=== PATIENT | male | born 1955 | race Caucasian/White ===

== ENCOUNTER 2019-08-26 08:51 | Outpatient (CLI) | payer BC, SELFPAY ==
--- NOTE | ~2019-08-26 | XR_ITS ---
EXAMINATION: XR chest 2V DATE: 08/26/2019 09:27 INDICATION: Shortness of breath. TECHNIQUE: Frontal and lateral views of the chest were obtained. COMPARISON: Chest single view 03/01/2017, chest CT 02/28/2017 FINDINGS: There is an interstitial pattern in the lungs, consistent with mild pulmonary edema. There is a small right pleural effusion. No pneumothorax. The heart size is normal. IMPRESSION: 1. Mild pulmonary edema. 2. Small right pleural effusion. Reviewed, dictated and finalized at location A.
== END 2019-08-26 08:52 | disposition home or self-care (01) ==
PROVIDERS: PCP Family Medicine; Visit Provider Nurse Practitioner Family
DX: J90 Pleural effusion, not elsewhere classified (principal); R91.8 Other nonspecific abnormal finding of lung field
CPT/HCPCS: 71046

== ENCOUNTER 2019-08-27 09:34 | Outpatient (CLI) | payer BC, SELFPAY ==
[2019-08-27 10:24] LABS: Hematocrit 40.8 % (42.0-52.0); Hemoglobin 13.5 g/dL (14.0-18.0); Mean Corpuscular HGB Conc 33.1 g/dl (32-36); Mean Corpuscular Hemoglobin 31.3 pg (26-34); Mean Corpuscular Volume 94.4 fl (80-100); Mean Platelet Volume 10.8 fl (7.4-10.4); Platelet Count Result 213 k/mm3 (150-375); Red Blood Count 4.32 M/mm3 (4.6-6.20); Red Cell Distribution Width 13.2 % (11.5-14.5); White Blood Count 4.7 K/mm3 (4.5-10.0)
[2019-08-27 10:31] LABS: D Dimer 0.31 ug/mL (<0.48)
[2019-08-27 10:33] LABS: Blood Urea Nitrogen 14 mg/dL (9-20); Calcium 9.4 mg/dL (8.4-10.2); Carbon Dioxide 24 mmol/L (22-30); Chloride 101 mmol/L (98-107); Estimated Glomerular Filt Rate > 60; Glucose 403 mg/dL (75-110); Potassium 4.5 mmol/L (3.4-5.0); Sodium 133 mmol/L (137-145)
[2019-08-27 10:41] LABS: NT Pro B Type Natriuretic Pept 595 PG/ML (5-100)
== END 2019-08-27 09:35 | disposition home or self-care (01) ==
PROVIDERS: PCP Family Medicine; Visit Provider Nurse Practitioner Family
DX: R06.02 Shortness of breath (principal); R50.9 Fever, unspecified
CPT/HCPCS: 36415; 80048; 83880; 85027; 85380

== ENCOUNTER 2020-05-09 16:28 | Outpatient (CLI) | payer BC, MEDICARE, OTHER, SELFPAY ==
--- NOTE | ~2020-05-09 | XR_ITS ---
EXAMINATION: XR chest 2V DATE: 05/09/2020 16:50 INDICATION: Cough and shortness of breath TECHNIQUE: PA and lateral views of the chest are obtained. COMPARISON: 08/26/2019 FINDINGS: There are minimal airspace opacities of the lung bases. A mild diffuse interstitial pattern is present. There are small pleural effusions. The cardiomediastinal silhouette is normal. There are bridging osteophytes at multiple levels in the spine, consistent with diffuse idiopathic skeletal hy perostosis (DISH). IMPRESSION: 1. Likely mild pulmonary edema. 2. Small pleural effusions. Reviewed, dictated and finalized at location A. MACY INTERN
== END 2020-05-09 16:29 | disposition home or self-care (01) ==
LOC: ANHIMG 16:34
PROVIDERS: PCP Family Medicine; Visit Provider Nurse Practitioner Family
DX: R05 Cough (principal); R06.02 Shortness of breath; R60.0 Localized edema; M79.89 Other specified soft tissue disorders; J90 Pleural effusion, not elsewhere classified
CPT/HCPCS: 71046

== ENCOUNTER 2020-05-10 10:46 | Outpatient (CLI) | payer BC, MEDICARE, OTHER, SELFPAY ==
[2020-05-10 11:37] LABS: Anion Gap 9 mmol/L (8-16); Blood Urea Nitrogen 19 mg/dL (9-20); Calcium 9.6 mg/dL (8.4-10.2); Carbon Dioxide 28 mmol/L (22-30); Chloride 100 mmol/L (98-107); Estimated Glomerular Filt Rate > 60; Glucose 328 mg/dL (75-110); Potassium 4.4 mmol/L (3.4-5.0); Sodium 137 mmol/L (137-145)
[2020-05-10 11:46] LABS: NT Pro B Type Natriuretic Pept 280 PG/ML (5-100)
== END 2020-05-10 10:47 | disposition home or self-care (01) ==
PROVIDERS: PCP Family Medicine; Visit Provider Nurse Practitioner Family
DX: R60.0 Localized edema (principal); R06.02 Shortness of breath; R05 Cough
CPT/HCPCS: 36415; 80048; 83880

== ENCOUNTER 2020-05-13 07:56 | Outpatient (CLI) | payer BC, MEDICARE, OTHER, SELFPAY ==
[2020-05-13 08:35] LABS: Anion Gap 7 mmol/L (8-16); Blood Urea Nitrogen 21 mg/dL (9-20); Calcium 8.9 mg/dL (8.4-10.2); Carbon Dioxide 30 mmol/L (22-30); Chloride 99 mmol/L (98-107); Estimated Glomerular Filt Rate > 60; Glucose 335 mg/dL (75-110); Potassium 5.6 mmol/L (3.4-5.0); Sodium 136 mmol/L (137-145)
== END 2020-05-13 07:57 | disposition home or self-care (01) ==
PROVIDERS: PCP Family Medicine; Visit Provider Nurse Practitioner Family
DX: R60.0 Localized edema (principal)
CPT/HCPCS: 36415; 80048

== ENCOUNTER 2020-05-16 07:52 | Outpatient (CLI) | payer BC, MEDICARE, OTHER, SELFPAY ==
[2020-05-16 08:30] LABS: Anion Gap 7 mmol/L (8-16); Blood Urea Nitrogen 21 mg/dL (9-20); Calcium 9.2 mg/dL (8.4-10.2); Carbon Dioxide 27 mmol/L (22-30); Chloride 102 mmol/L (98-107); Estimated Glomerular Filt Rate > 60; Glucose 238 mg/dL (75-110); Potassium 4.4 mmol/L (3.4-5.0); Sodium 136 mmol/L (137-145)
== END 2020-05-16 07:53 | disposition home or self-care (01) ==
PROVIDERS: PCP Family Medicine; Visit Provider Nurse Practitioner Family
DX: E87.5 Hyperkalemia (principal)
CPT/HCPCS: 36415; 80048

== ENCOUNTER 2020-05-26 08:23 | Outpatient (CLI) | payer BC, MEDICARE, OTHER, SELFPAY ==
[2020-05-26 09:09] LABS: Magnesium 1.7 mg/dL (1.6-2.3)
== END 2020-05-26 08:24 | disposition home or self-care (01) ==
PROVIDERS: PCP Family Medicine; Visit Provider Nurse Practitioner Family
DX: R25.2 Cramp and spasm (principal)
CPT/HCPCS: 36415; 82607; 83735

== ENCOUNTER 2020-08-02 06:51 | Inpatient (IN) | payer BC, MEDICARE, OTHER, SELFPAY ==
[2020-08-02] VITALS (9 sets, daily range): BP systolic 138–180; BP diastolic 62–79; PULSE 64–105; RESP 16–26; TEMP 36.5–36.8; O2SAT 96–99; BMI 44.1
--- NOTE | ~2020-08-02 | MR_ITS ---
EXAMINATION: MR lower leg RT wo/w con DATE: 08/02/2020 16:36 INDICATION: Right lower leg infection TECHNIQUE: Magnetic resonance imaging (MRI) of the right lower leg was performed without and with 20 mL Multihance intravenous contrast. A marker was placed over the region of concern. Sequences includ ed axial T1-weighted FSE, axial T2-weighted FS FSE, axial fluid sensitive FSE STIR ,coronal T1-weight ed FSE, coronal fluid sensitive FSE STIR, sagittal T1-weighted FSE and sagittal fluid sensitive FSE S TIR. Postcontrast axial and coronal T1-weighted FS FSE were also obtained. COMPARISON: Radiographs dated 02/23/2010 FINDINGS: Old healed fracture deformity at the mid right tibial diaphysis. Normal marrow signal throughout with no fracture, osteomyelitis or other pathologic marrow replacing process. There is prominent diffuse subcutaneous edema throughout the right calf. No significant edema in the deeper muscular compartment s. No abscess or other loculated fluid collections. There is contrast enhancement of multiple vessels in the visualized calf. No evident venous thrombosis. No abnormal masses or abnormally enhancing les ions identified. IMPRESSION: 1. Prominent nonspecific subcutaneous edema throughout the right calf. No abscess, myositis or osteom yelitis. 2. Old healed mid fibular diaphyseal fracture. Reviewed, dictated and finalized at location A. IMPRESSION: 1. Prominent nonspecific subcutaneous edema throughout the right calf. No absce ss, myositis or osteomyelitis. 2. Old healed mid fibular diaphyseal fracture.
--- NOTE | ~2020-08-02 | XR_ITS ---
EXAMINATION: XR chest 1V portable INDICATION: Chills TECHNIQUE: Portable AP chest at 0826 hours COMPARISON: 05/09/2020 FINDINGS: The lungs are free of acute opacities. There is no pleural effusion or pneumothorax. The ca rdiomediastinal silhouette is normal. The visualized bones and soft tissues are unremarkable. IMPRESSION: 1. No acute cardiopulmonary abnormality. Reviewed, dictated and finalized at location A.
--- NOTE | ~2020-08-02 | US_ITS ---
EXAMINATION: US venous doppler LE RT DATE: 08/02/2020 09:54 INDICATION: Right lower limb pain. TECHNIQUE: Grayscale ultrasound images without and with compression and Doppler ultrasound images of the right lower extremity veins were obtained. COMPARISON: None. FINDINGS: The visualized portions of right common femoral vein, profunda (deep) femoral vein, femoral vein, pop liteal vein, peroneal veins, posterior tibial veins, and greater saphenous vein outflow are patent. IMPRESSION: 1. No deep venous thrombosis. Reviewed, dictated and finalized at location B.
--- NOTE | 2020-08-02 08:06 | ED.GENADULT ---
HPI - General Adult General Chief complaint: Wound/Laceration Stated complaint: chills Time Seen by Provider: 08/02/20 07:06 Source: patient History of Present Illness HPI narrative: Patient is a 64 y/o male complaining of severe, shaking chill starting 2 hours ago. There is no known alleviating or exacerbating factor. However, his symptoms have improved spontaneously. He has no fever, cough or SOB. He denies any pain. Related Data Home Medications Medication Instructions Recorded Confirmed aspirin [Enteric Coated Aspirin] 08/02/20 atorvastatin 08/02/20 clonidine HCl 08/02/20 dapagliflozin [Farxiga] mg 08/02/20 dofetilide mcg 08/02/20 exenatide microspheres [Bydureon mg SUBCUT 08/02/20 BCise] hydralazine 08/02/20 metformin 2,000 mg PO QPM 08/02/20 nifedipine PO 08/02/20 omega-3 acid ethyl esters PO 08/02/20 tamsulosin mg PO 08/02/20 trazodone 08/02/20 zolpidem 08/02/20 Allergies Allergy/AdvReac Type Severity Reaction Status Date / Time cyclobenzaprine Allergy Unknown Unknown Verified 07/04/20 09:06 Review of Systems Constitutional: Constitutional: Reports chills, Denies fever(s), Denies headache(s) and Denies weakness Eyes: Eyes: Denies blurry vision ENT: Denies headache(s) and Denies neck pain Cardiovascular: Cardiovascular: Denies chest pain and Denies dyspnea Respiratory: Respiratory: Denies cough and Denies dyspnea Gastrointestinal: Gastrointestinal: Denies abdominal pain, Denies diarrhea, Denies nausea and Denies vomiting Genitourinary: Genitourinary: Denies hematuria and Denies dysuria Musculoskeletal: Musculoskeletal: Denies back pain, Denies neck pain and Reports other (right lower leg pain) Neurologic: Denies headache(s) and Denies weakness [facility] Past Medical History Medical History BMI 40.0-44.9, adult BMI 45.0-49.9, adult BPH associated with nocturia Essential (primary) hypertension Mixed hyperlipidemia Morbid obesity Other emphysema Testicular hypofunction Type 2 diabetes mellitus without complications Vasculogenic erectile dysfunction Vitamin D deficiency Family History Family History Mother Hypertension Cancer Grandparent Carcinoma of colon Diabetes mellitus Father Family history of diabetes mellitus in first degree relative Acute myocardial infarction Heart disease Sibling Heart disease Acute myocardial infarction Social History Social History Tobacco type: cigarettes Smoking end date: 09/07/78 Alcohol intake: never Substance use: never Substance use type: does not use 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[employer] Gender identity (if verbalized by the patient): Male Exam Const: General: no acute distress and well developed Orientation/consciousness: oriented to person, oriented to place, oriented to time and patient oriented x3 HENMT: Head: normocephalic Ears: external ears normal General nose exam: Normal external nose present Eyes: General: appearance normal, both eyes and all related structures Conjunctivae: conjunctivae normal Neck: Neck: normal visual inspection and full ROM Chest: Chest palpation & inspection: normal inspection of the chest and no tenderness Resp: Effort & Inspection: normal respiratory effort Auscultation: clear to auscultation bilaterally Cardio: Rate: regular rate Rhythm: regular rhythm GI: GI Palp: No abdominal tenderness and Yes Soft to palpation Skin: General skin exam: normal color, turgor normal and erythema (right lower leg) Neuro: General: oriented to person, oriented to place, oriented to time and patient oriented x3 Cognition (Neuro): normal cognition Extrem: General: normal to inspection, full ROM and no pedal edema Psych: Appearance: grossly normal Mental Status: mental
[2020-08-02 08:25] LABS: Basophils Percent Auto 0.3 % (0.2-1.2); Eosinophils Absolute Auto 0.1 K/mm3 (0-0.3); Eosinophils Percent Auto 0.9 % (0-4.4); Hematocrit 41.3 % (42.0-52.0); Hemoglobin 13.9 g/dL (14.0-18.0); Immature Granulocyte Absolute 0.03 K/mm3 (0.00-0.031); Immature Granulocyte Percent A 0.5 % (0-0.5); Lymphocytes Absolute Auto 0.39 K/mm3 (0.9-3.2); Mean Corpuscular HGB Conc 33.7 g/dl (32-36); Mean Corpuscular Volume 94.9 fl (80-100); Mean Platelet Volume 10.3 fl (7.4-10.4); Monocytes Absolute Auto 0.1 K/mm3 (0.1-0.6); Monocytes Percent Auto 2.1 % (2.6-8.5); Neutrophils Absolute Auto 5.9 K/mm3 (1.3-6.7); Neutrophils Percent Auto 90.2 % (45.5-73.1); Platelet Count Result 147 k/mm3 (150-375); Red Blood Count 4.35 M/mm3 (4.6-6.20); Red Cell Distribution Width 13.5 % (11.5-14.5); White Blood Count 6.5 K/mm3 (4.5-10.0)
[2020-08-02 08:34] LABS: Alanine Aminotransferase 30 U/L (4-50); Alkaline Phosphatase 64 U/L (38-126); Anion Gap 10 mmol/L (8-16); Aspartate Amino Transferase 43 U/L (17-59); Bilirubin,Total 0.8 mg/dL (0.2-1.3); Blood Urea Nitrogen 14 mg/dL (9-20); Calcium 9.4 mg/dL (8.4-10.2); Carbon Dioxide 24 mmol/L (22-30); Chloride 103 mmol/L (98-107); Estimated Glomerular Filt Rate > 60; Glucose 257 mg/dL (75-110); Potassium 3.9 mmol/L (3.4-5.0); Sodium 137 mmol/L (137-145)
[2020-08-02 08:35] LABS: Lactic Acid Reflex 3.2 mmol/L (0.7-2.1)
[2020-08-02 08:48] LABS: Add Urine Microscopic? YES; Appearance Urine Clear (Clear); Bilirubin Urine Negative (Negative); Blood Urine Negative (Negative); Color Urine Yellow (Yellow); Glucose Urine UA 3+ mg/dL (Negative); Ketones Urine Trace mg/dL (Negative); Leukocyte Esterase Ur Negative LEU/UL (Negative); Nitrate Urine Negative (Negative); Protein Urine 1+ mg/dL (Negative); RBC Urine 0-2 /hpf (0-2); Specific Grav Ur 1.028 (1.001-1.035); Urobilinogen Urine Negative mg/dL (<2.0)
[2020-08-02] MEDS: SODIUM CHLORIDE 0.9% IV 1,000 ML 999 ML IV CONT (09:27)
[2020-08-02] MEDS: SODIUM CHLORIDE 0.9% IV 1,000 ML 125 ML IV CONT (10:42)
--- NOTE | 2020-08-02 10:55 | ADMGEN ---
This patient, Blas Cole, was admitted to Medical Room 340-01. Patient/family oriented to hospital policies and general routines including ID bracelet, bed and alarms, visiting hours, pain management, procedures, bathroom and other care routines, personal items, smoking policy, room service/diet, and visiting hours. Information on how to activate the Rapid Response Team has been discussed. Patient/Family are encouraged to report perceived risks to care and to ask questions if they do not understand what they are told or what they should do.
[2020-08-02 11:22] LABS: Reflex Lactic Acid Yes or No Add Lactic
[2020-08-02 12:15] LABS: Lactic Acid 3.6 mmol/L (0.7-2.1)
--- NOTE | 2020-08-02 13:50 | PM.IMHP ---
H&P: HPI History of Present Illness Date/Time: 08/02/20 13:50 this is a 64-year-old diabetic patient who stated that he is having some redness to his right lower extremity for quite some time. He could not place how long it has been red but he states that is always swollen because he has had surgery to his right knee and right foot in the past. She was always swollen. The patient stated that it has been losing he has 1 Band-Aid over the spot where has been using. He states that it is just the watery substance it looks like water he stated but no foul smell. The patient had a venous Doppler today that was found to be negative in the emergency room. Just the right leg is red and not the left leg. The right leg is quite bigger than the left. The redness goes from around his ankle to just below his knee. He does not have a significant white count. The patient is diabetic Blood sugars are typically in the 200s and 300s. Chest x-ray was read as Cardiopulmonary abnormalities. Patient initially was started on Zosyn and vancomycin for the cellulitis of the right lower extremity. Blood cultures are pending. He did not Notice any fever at home. But he had chills and was shaking about 2 hours prior to coming to the emergency room. He did not take anything to relieve his symptoms. I asked him if he was seen by his primary care doctor. He stated that he has not been on any antibiotics. The patient is being admitted to observation status on the date of service of 08/02/2020. Chief Complaint: Chills and redness to right leg Review of Systems Review of Systems: All systems reviewed & are unremarkable except as noted in HPI and below Constitutional: Constitutional: Reports as per HPI and Reports no additional constitutional complaints Eyes: Eyes: Reports as per HPI and Reports no additional eye complaints ENT: Reports system reviewed and no additional complaints, except as documented and Reports Normal hearing present Cardiovascular: Cardiovascular: Reports no additional cardiovascular complaints Respiratory: Respiratory: Reports no additional respiratory complaints and Reports no additional respiratory complaints Gastrointestinal: Gastrointestinal: Reports as per HPI and Reports no additional gastrointestinal complaints Musculoskeletal: Musculoskeletal: Reports no additional musculoskeletal complaints Integumentary/Breasts: Skin/Breast: Reports system reviewed and no additional complaints, except as docu and Reports as per HPI Neurologic: Reports system reviewed and no additional complaints, except as documented, Reports as per HPI and Reports Normal hearing present Psychiatric: Psychiatric: Reports no additional psychiatric complaints and Reports as per HPI Endocrine: Endocrine: Reports no additional endocrine complaints Hematologic/Lymphatic: Hematologic/Lymphatic: Reports no additional hematologic/lymphatic complaints Allergic/Immunologic: Allergic/Immunologic: Reports no additional allergic/immunologic complaints [facility] Past Medical History Medical History (Updated 08/02/20 @ 13:59 by Jazzy Johnson NP) Asthma Atrial fibrillation The patient stated that he was cardioverted 8 times and also had an ablation. BMI 40.0-44.9, adult BMI 45.0-49.9, adult BPH associated with nocturia Dizziness Essential (primary) hypertension Hypertension Insomnia Kidney stone X4 passed on his own Mixed hyperlipidemia Morbid obesity MARIYA (obstructive sleep apnea) Other emphysema Surgical screw in right hand Testicular hypofunction Toe pain, right Type 2 diabetes mellitus without complications Vasculogenic erectile dysfunction Vitamin D deficiency Surgical History Surgical History (Updated 08/02/20 @ 13:59 by Jazzy Johnson NP) H/O cardiac catheterization H/O hernia repair H/O right knee surgery History of loop recorder History of tonsillectomy and adenoidectomy Hx of cholecystectomy S/P ablation of atrial flutter Status post right fo
[2020-08-02] MEDS: cloNIDine HCL 0.1 MG TABLET 0.3 MG PO (14:34)
[2020-08-02] MEDS: hydrALAZINE HCL 50 MG TABLET 100 MG PO (14:34)
[2020-08-02] MEDS: OMEGA 3 POLYUNSAT FATTY ACIDS 1 GM CAP PO (14:34)
[2020-08-02] MEDS: ATORVASTATIN 20 MG TABLET PO (14:34)
[2020-08-02] MEDS: TRIAMCINOLONE ACET 0.1% CREAM 15 GM TUBE 1 APPLIC TOPICAL ×2 (14:34→20:06)
[2020-08-02] MEDS: NIFEdipine 30 MG TAB.ER.24 90 MG PO (14:34)
[2020-08-02] MEDS: ASPIRIN 81 MG ENTERIC TABLET PO (14:34)
[2020-08-02 17:36] LABS: Glucose Point of Care 183 mg/dl (65-105)
--- NOTE | 2020-08-02 18:14 | PHAR ---
The patient's home med of Dofetilide 250 mcg capsule has been verified.
[2020-08-02] MEDS: TAMSULOSIN HCL 0.4 MG CAPSULE PO (18:40)
[2020-08-02] MEDS: metFORMIN HCL XR 500 MG TAB.SR.24H 2000 MG PO (18:40)
[2020-08-02 20:08] LABS: Glucose Point of Care 222 mg/dl (65-105)
[2020-08-02] MEDS: WATER FOR IRRIGATION, STERILE 1,000 ML BOTTLE 1000 ML (21:02)
[2020-08-02] MEDS: ZOLPIDEM TARTRATE (*CRX) 5 MG TABLET 10 MG PO (21:17)
[2020-08-03] MEDS: SODIUM CHLORIDE 0.9% IV 1,000 ML 125 ML IV CONT ×2 (01:30→22:18)
[2020-08-03 04:17] VITALS: BP 150/57; PULSE 82; RESP 17; TEMP 36.1; O2SAT 97
[2020-08-03 05:38] LABS: Basophils Percent Auto 0.4 % (0.2-1.2); Eosinophils Absolute Auto 0.2 K/mm3 (0-0.3); Eosinophils Percent Auto 3.6 % (0-4.4); Hematocrit 37.3 % (42.0-52.0); Hemoglobin 12.4 g/dL (14.0-18.0); Immature Granulocyte Absolute 0.03 K/mm3 (0.00-0.031); Immature Granulocyte Percent A 0.5 % (0-0.5); Lymphocytes Absolute Auto 1.58 K/mm3 (0.9-3.2); Lymphocytes Percent Auto 28.2 % (18.3-44.2); Mean Corpuscular HGB Conc 33.2 g/dl (32-36); Mean Corpuscular Hemoglobin 30.8 pg (26-34); Mean Corpuscular Volume 92.6 fl (80-100); Mean Platelet Volume 10.4 fl (7.4-10.4); Monocytes Absolute Auto 0.6 K/mm3 (0.1-0.6); Monocytes Percent Auto 10.5 % (2.6-8.5); Neutrophils Absolute Auto 3.2 K/mm3 (1.3-6.7); Neutrophils Percent Auto 56.8 % (45.5-73.1); Platelet Count Result 161 k/mm3 (150-375); Red Blood Count 4.03 M/mm3 (4.6-6.20); Red Cell Distribution Width 13.4 % (11.5-14.5); White Blood Count 5.6 K/mm3 (4.5-10.0)
[2020-08-03 05:49] LABS: Alanine Aminotransferase 83 U/L (4-50); Albumin Level 3.5 g/dL (3.5-5.1); Alkaline Phosphatase 48 U/L (38-126); Anion Gap 5 mmol/L (8-16); Aspartate Amino Transferase 72 U/L (17-59); Bilirubin,Total 0.7 mg/dL (0.2-1.3); Blood Urea Nitrogen 9 mg/dL (9-20); Calcium 8.9 mg/dL (8.4-10.2); Carbon Dioxide 25 mmol/L (22-30); Chloride 106 mmol/L (98-107); Estimated CRCL calculation 130 ml/min; Estimated Glomerular Filt Rate > 60; Glucose 198 mg/dL (75-110); Lipase 51 U/L (23-300); Magnesium 1.9 mg/dL (1.6-2.3); Sodium 136 mmol/L (137-145)
[2020-08-03 05:55] LABS: Hemoglobin A1C 8.1 % (<5.7)
[2020-08-03 07:37] LABS: Free T4 Free Thyroxine Reflex 0.75 ng/dL (0.78-2.19)
[2020-08-03 07:50] LABS: Glucose Point of Care 190 mg/dl (65-105)
[2020-08-03] MEDS: ATORVASTATIN 20 MG TABLET PO (08:11)
[2020-08-03] MEDS: ASPIRIN 81 MG ENTERIC TABLET PO (08:11)
[2020-08-03] MEDS: TRIAMCINOLONE ACET 0.1% CREAM 15 GM TUBE 1 APPLIC TOPICAL ×2 (08:12→21:26)
[2020-08-03] MEDS: hydrALAZINE HCL 50 MG TABLET 100 MG PO (08:12)
[2020-08-03] MEDS: cloNIDine HCL 0.1 MG TABLET 0.3 MG PO (08:12)
[2020-08-03] MEDS: OMEGA 3 POLYUNSAT FATTY ACIDS 1 GM CAP PO (08:12)
[2020-08-03] MEDS: NIFEdipine 30 MG TAB.ER.24 90 MG PO (08:12)
[2020-08-03 10:22] LABS: Vancomycin Trough 11.6 ug/mL (10.0-20.0)
[2020-08-03] MEDS: ENOXAPARIN 40 MG/0.4 ML SYRINGE SUB-Q ×2 (10:51→21:25)
[2020-08-03 12:14] LABS: Glucose Point of Care 232 mg/dl (65-105)
[2020-08-03] MEDS: INSULIN ASPART (*BKC) 100 UNITS/ML SUB-Q (12:29)
[2020-08-03 14:00] VITALS: BP 157/64; PULSE 78; RESP 16; TEMP 35.9; O2SAT 97
--- NOTE | 2020-08-03 14:20 | PM.IMPN ---
Progress Note: A&P Assessment and Plan (1) Cellulitis of leg, right: Code(s): L03.115 - Cellulitis of right lower limb Status: Acute Assessment and Plan: The patient has a Band-Aid over a spot to the mid right leg. I am not sure full be able to get any drainage to get a culture but will try. The patient has blood cultures pending. As per antibiotics to her to for cellulitis in a diabetic patient I did go with Primaxin and vancomycin. The patient is admitted as observation status although he most likely will qualify for inpatient. The patient really is not having any complaints of discomfort at this time. He has not had any fever but had some chills. No leukocytosis. 08/03/20 14:20 Patient is 64-year-old male morbidly obese presented emergency department with a complaint right lower extremity swelling and redness it was painful, lower extremity Doppler is negative for DVT, patient is diagnosed with cellulitis of right lower extremity started the patient on imipenem and vancomycin, today patient states feeling much better redness has improved, denies any fever or chills, will continue to monitor and further recommendation to follow will have a PT OT evaluate the patient (2) Hypertension: Code(s): I10 - Essential (primary) hypertension Status: Chronic Assessment and Plan: Continue with patient's home dose of hydralazine and nifedipine (3) Type 2 diabetes mellitus without complications: Qualifiers: Diabetes mellitus half-way insulin use: with half-way use Qualified Code(s): E11.9 - Type 2 diabetes mellitus without complications; Z79.4 - termite treater 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 Check A1c. Bydureon and farxiga are both non formulary. Continue with metformin continue to monitor renal function (4) Mixed hyperlipidemia: Code(s): E78.2 - Mixed hyperlipidemia Status: Chronic Assessment and Plan: Continue with Lipitor (5) MARIYA (obstructive sleep apnea): Code(s): G47.33 - Obstructive sleep apnea (adult) (pediatric) Status: Chronic Assessment and Plan: His is going to bring his sleep apnea machine (6) Asthma: Code(s): J45.909 - Unspecified asthma, uncomplicated Status: Chronic Assessment and Plan: Continue with inhalers. (7) Insomnia: Qualifiers: Insomnia type: primary Qualified Code(s): F51.01 - Primary insomnia Code(s): G47.00 - Insomnia, unspecified Status: Chronic Assessment and Plan: Continue with patient's Ambien as needed and his trazodone (8) BPH associated with nocturia: Code(s): N40.1 - Benign prostatic hyperplasia with lower urinary tract symptoms; R35.1 - Nocturia Status: Chronic Assessment and Plan: Continue with Flomax Subjective Date/time seen: 08/03/20 14:20 Patient is 64-year-old male morbidly obese presented emergency department with a complaint right lower extremity swelling and redness it was painful, lower extremity Doppler is negative for DVT, patient is diagnosed with cellulitis of right lower extremity started the patient on imipenem and vancomycin, today patient states feeling much better redness has improved, denies any fever or chills, will continue to monitor and further recommendation to follow will have a PT OT evaluate the patient Review of Systems Review of Systems: All systems reviewed & are unremarkable except as noted in HPI and below Exam Narrative: Exam Narrative: Morbidly obese Patient is comfortable, NAD HEENT: eyes are clear and none icteric LUNGS:CTA HEART: RR S1S2 ABD: BS+, Soft and nontender Lower extremities: Right lower extremity is swallen, anterior aspect erythmatous, and warm, there are no open wound. SKIN: nonjaundiced Neuro: grossly intact. Objective Data Vital Signs V
[2020-08-03] MEDS: TAMSULOSIN HCL 0.4 MG CAPSULE PO (17:19)
[2020-08-03] MEDS: metFORMIN HCL XR 500 MG TAB.SR.24H 2000 MG PO (17:19)
[2020-08-03 17:23] LABS: Glucose Point of Care 185 mg/dl (65-105)
[2020-08-03 19:52] VITALS: BP 153/67; PULSE 85; RESP 14; TEMP 36.7; O2SAT 98
[2020-08-03] MEDS: ZOLPIDEM TARTRATE (*CRX) 5 MG TABLET 10 MG PO (21:26)
[2020-08-03 21:37] LABS: Glucose Point of Care 197 mg/dl (65-105)
[2020-08-03 22:38] VITALS: PULSE 86; O2SAT 95
[2020-08-04 05:40] VITALS: BP 182/82; PULSE 89; RESP 14; TEMP 36.3; O2SAT 98
[2020-08-04 06:17] LABS: Estimated CRCL calculation 147 ml/min; Estimated Glomerular Filt Rate > 60
[2020-08-04 07:44] LABS: Glucose Point of Care 164 mg/dl (65-105)
[2020-08-04] MEDS: TRIAMCINOLONE ACET 0.1% CREAM 15 GM TUBE 1 APPLIC TOPICAL ×2 (08:20→20:00)
[2020-08-04] MEDS: ENOXAPARIN 40 MG/0.4 ML SYRINGE SUB-Q ×2 (08:20→20:00)
[2020-08-04] MEDS: NIFEdipine 30 MG TAB.ER.24 90 MG PO (08:21)
[2020-08-04] MEDS: ATORVASTATIN 20 MG TABLET PO (08:21)
[2020-08-04] MEDS: hydrALAZINE HCL 50 MG TABLET 100 MG PO (08:21)
[2020-08-04] MEDS: OMEGA 3 POLYUNSAT FATTY ACIDS 1 GM CAP PO (08:21)
[2020-08-04] MEDS: ASPIRIN 81 MG ENTERIC TABLET PO (08:21)
[2020-08-04] MEDS: cloNIDine HCL 0.1 MG TABLET 0.3 MG PO (08:21)
[2020-08-04] MEDS: LIDOCAINE 5% PATCH 2 PATCH TRANSDERM (10:43)
[2020-08-04 11:56] LABS: Glucose Point of Care 182 mg/dl (65-105)
[2020-08-04 13:58] VITALS: BP 168/69; PULSE 81; RESP 16; TEMP 36.6; O2SAT 97
--- NOTE | 2020-08-04 15:01 | PM.IMPN ---
Progress Note: A&P Assessment and Plan (1) Cellulitis of leg, right: Code(s): L03.115 - Cellulitis of right lower limb Status: Acute Assessment and Plan: 08/04/20 15:01 The patient has a Band-Aid over a spot to the mid right leg. I am not sure full be able to get any drainage to get a culture but will try. The patient has blood cultures pending. As per antibiotics to her to for cellulitis in a diabetic patient I did go with Primaxin and vancomycin. The patient is admitted as observation status although he most likely will qualify for inpatient. The patient really is not having any complaints of discomfort at this time. He has not had any fever but had some chills. No leukocytosis. 08/03/20 14:20 Patient is 64-year-old male morbidly obese presented emergency department with a complaint right lower extremity swelling and redness it was painful, lower extremity Doppler is negative for DVT, patient is diagnosed with cellulitis of right lower extremity started the patient on imipenem and vancomycin, today patient states feeling much better redness has improved, denies any fever or chills, will continue to monitor and further recommendation to follow will have a PT OT evaluate the patient. 08/04 patient wound culture is growing Staphylococcus aureus patient is being treated cefepime and vancomycin, patient is clinically stable the lower extremity cellulitis is improving, blood cultures, will continue to monitor will have a PT OT evaluate the patient and further recommendation to follow (2) Hypertension: Code(s): I10 - Essential (primary) hypertension Status: Chronic Assessment and Plan: Continue with patient's home dose of hydralazine and nifedipine (3) Type 2 diabetes mellitus without complications: Qualifiers: Diabetes mellitus intermission coordinator insulin use: with intermission coordinator use Qualified Code(s): E11.9 - Type 2 diabetes mellitus without complications; Z79.4 - long-term (current) use of insulin Code(s): E11.9 - Type 2 diabetes mellitus without complications Status: Chronic Assessment and Plan: Accu-Cheks AC and HS. Check A1c. Bydureon and farxiga are both non formulary. Continue with metformin continue to monitor renal function (4) Mixed hyperlipidemia: Code(s): E78.2 - Mixed hyperlipidemia Status: Chronic Assessment and Plan: Continue with Lipitor (5) MARIYA (obstructive sleep apnea): Code(s): G47.33 - Obstructive sleep apnea (adult) (pediatric) Status: Chronic Assessment and Plan: His is going to bring his sleep apnea machine (6) Asthma: Code(s): J45.909 - Unspecified asthma, uncomplicated Status: Chronic Assessment and Plan: Continue with inhalers. (7) Insomnia: Qualifiers: Insomnia type: primary Qualified Code(s): F51.01 - Primary insomnia Code(s): G47.00 - Insomnia, unspecified Status: Chronic Assessment and Plan: Continue with patient's Ambien as needed and his trazodone (8) BPH associated with nocturia: Code(s): N40.1 - Benign prostatic hyperplasia with lower urinary tract symptoms; R35.1 - Nocturia Status: Chronic Assessment and Plan: Continue with Flomax Subjective Date/time seen: 08/04/20 15:01 The patient has a Band-Aid over a spot to the mid right leg. I am not sure full be able to get any drainage to get a culture but will try. The patient has blood cultures pending. As per antibiotics to her to for cellulitis in a diabetic patient I did go with Primaxin and vancomycin. The patient is admitted as observation status although he most likely will qualify for inpatient. The patient really is not having any complaints of discomfort at this time. He has not had any fever but had some chills. No leukocytosis. 08/03/20 14:20 Patient is 64-year-old male morbidly obese presented emergency department with a complaint right lower extremity swelling a
[2020-08-04] MEDS: SODIUM CHLORIDE 0.9% IV 1,000 ML 125 ML IV CONT (16:16)
[2020-08-04 17:04] LABS: Glucose Point of Care 149 mg/dl (65-105)
[2020-08-04] MEDS: metFORMIN HCL XR 500 MG TAB.SR.24H 2000 MG PO (18:09)
[2020-08-04] MEDS: TAMSULOSIN HCL 0.4 MG CAPSULE PO (18:09)
[2020-08-04 19:31] LABS: Vancomycin Trough 17.1 ug/mL (10.0-20.0)
[2020-08-04 19:36] VITALS: BP 176/74; PULSE 81; RESP 17; TEMP 36.9; O2SAT 97
[2020-08-04 19:45] LABS: Glucose Point of Care 185 mg/dl (65-105)
[2020-08-04] MEDS: ZOLPIDEM TARTRATE (*CRX) 5 MG TABLET 10 MG PO (21:29)
[2020-08-04 22:35] VITALS: PULSE 81; O2SAT 97
[2020-08-05 03:37] VITALS: O2SAT 97
[2020-08-05 04:14] VITALS: BP 159/67; PULSE 84; RESP 17; TEMP 36.1; O2SAT 98
[2020-08-05] MEDS: SODIUM CHLORIDE 0.9% IV 1,000 ML 125 ML IV CONT (05:49)
[2020-08-05 07:21] LABS: Glucose Point of Care 190 mg/dl (65-105)
[2020-08-05] MEDS: ASPIRIN 81 MG ENTERIC TABLET PO (08:18)
[2020-08-05] MEDS: ATORVASTATIN 20 MG TABLET PO (08:18)
[2020-08-05] MEDS: hydrALAZINE HCL 50 MG TABLET 100 MG PO (08:18)
[2020-08-05] MEDS: OMEGA 3 POLYUNSAT FATTY ACIDS 1 GM CAP PO (08:18)
[2020-08-05] MEDS: NIFEdipine 30 MG TAB.ER.24 90 MG PO (08:18)
[2020-08-05] MEDS: cloNIDine HCL 0.1 MG TABLET 0.3 MG PO (08:18)
[2020-08-05] MEDS: ENOXAPARIN 40 MG/0.4 ML SYRINGE SUB-Q (08:19)
[2020-08-05] MEDS: LIDOCAINE 5% PATCH 2 PATCH TRANSDERM (08:19)
[2020-08-05] MEDS: TRIAMCINOLONE ACET 0.1% CREAM 15 GM TUBE 1 APPLIC TOPICAL (08:20)
--- NOTE | 2020-08-05 09:22 | PM.DS ---
DS: Admitting Diagnosis Admitting Diagnosis Admitting Diagnosis: Lower extremity swelling DS: Discharge Diagnosis Discharge Diagnosis (1) Cellulitis of leg, right: Code(s): L03.115 - Cellulitis of right lower limb Status: Acute Assessment and Plan: 08/04/20 15:01 The patient has a Band-Aid over a spot to the mid right leg. I am not sure full be able to get any drainage to get a culture but will try. The patient has blood cultures pending. As per antibiotics to her to for cellulitis in a diabetic patient I did go with Primaxin and vancomycin. The patient is admitted as observation status although he most likely will qualify for inpatient. The patient really is not having any complaints of discomfort at this time. He has not had any fever but had some chills. No leukocytosis. 08/03/20 14:20 Patient is 64-year-old male morbidly obese presented emergency department with a complaint right lower extremity swelling and redness it was painful, lower extremity Doppler is negative for DVT, patient is diagnosed with cellulitis of right lower extremity started the patient on imipenem and vancomycin, today patient states feeling much better redness has improved, denies any fever or chills, will continue to monitor and further recommendation to follow will have a PT OT evaluate the patient. 08/04 patient wound culture is growing Staphylococcus aureus patient is being treated cefepime and vancomycin, patient is clinically stable the lower extremity cellulitis is improving, blood cultures, will continue to monitor will have a PT OT evaluate the patient and further recommendation to follow (2) Hypertension: Code(s): I10 - Essential (primary) hypertension Status: Chronic Assessment and Plan: Continue with patient's home dose of hydralazine and nifedipine (3) Type 2 diabetes mellitus without complications: Qualifiers: Diabetes mellitus shelter insulin use: with shelter use Qualified Code(s): E11.9 - Type 2 diabetes mellitus without complications; Z79.4 - watermelon 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 Check A1c. Bydureon and farxiga are both non formulary. Continue with metformin continue to monitor renal function (4) Mixed hyperlipidemia: Code(s): E78.2 - Mixed hyperlipidemia Status: Chronic Assessment and Plan: Continue with Lipitor (5) MARIYA (obstructive sleep apnea): Code(s): G47.33 - Obstructive sleep apnea (adult) (pediatric) Status: Chronic Assessment and Plan: His is going to bring his sleep apnea machine (6) Asthma: Code(s): J45.909 - Unspecified asthma, uncomplicated Status: Chronic Assessment and Plan: Continue with inhalers. (7) Insomnia: Qualifiers: Insomnia type: primary Qualified Code(s): F51.01 - Primary insomnia Code(s): G47.00 - Insomnia, unspecified Status: Chronic Assessment and Plan: Continue with patient's Ambien as needed and his trazodone (8) BPH associated with nocturia: Code(s): N40.1 - Benign prostatic hyperplasia with lower urinary tract symptoms; R35.1 - Nocturia Status: Chronic Assessment and Plan: Continue with Flomax DS: Summary Hospital Course Reason for hospitalization: this is a 64-year-old diabetic patient who stated that he is having some redness to his right lower extremity for quite some time. He could not place how long it has been red but he states that is always swollen because he has had surgery to his right knee and right foot in the past. She was always swollen. The patient stated that it has been losing he has 1 Band-Aid over the spot where has been using. He states that it is just the watery substance it looks like water he stated but no foul smell. The patient had a venous Doppler today that was f
[2020-08-05 10:53] LABS: Hemoglobin 12.2 g/dL (14.0-18.0); Immature Platelet Fraction Pct 3.1 % (0.9-11.2); Mean Corpuscular HGB Conc 33.9 g/dl (32-36); Mean Corpuscular Hemoglobin 31.7 pg (26-34); Mean Corpuscular Volume 93.5 fl (80-100); Mean Platelet Volume 10.5 fl (7.4-10.4); Platelet Count Result 123 k/mm3 (150-375); Red Blood Count 3.85 M/mm3 (4.6-6.20); Red Cell Distribution Width 13.6 % (11.5-14.5); White Blood Count 7.2 K/mm3 (4.5-10.0)
[2020-08-05 11:12] LABS: Anion Gap 6 mmol/L (8-16); Blood Urea Nitrogen 9 mg/dL (9-20); Calcium 8.7 mg/dL (8.4-10.2); Carbon Dioxide 23 mmol/L (22-30); Chloride 105 mmol/L (98-107); Estimated CRCL calculation 147 ml/min; Estimated Glomerular Filt Rate > 60; Glucose 243 mg/dL (75-110); Potassium 4.1 mmol/L (3.4-5.0); Sodium 134 mmol/L (137-145)
--- NOTE | 2020-08-05 12:17 | PC.NURSE ---
pt discharging, has been called for ride home, pt does not want BS checked at this time, will be eating lunch at home
== END 2020-08-05 13:17 | disposition home or self-care (01) | DRG 872 ==
LOC: ANHED 07:14 → ANH3MED 09:47
PROVIDERS: Nurse Practitioner; Admitting Provider Internal Medicine; Emergency Provider Emergency Medicine; PCP Family Medicine; Visit Provider Family Medicine
DX: A41.9 Sepsis, unspecified organism (principal); L03.115 Cellulitis of right lower limb; Z68.41 Body mass index [BMI] 40.0-44.9, adult; E66.01 Morbid (severe) obesity due to excess calories; E78.5 Hyperlipidemia, unspecified; G47.33 Obstructive sleep apnea (adult) (pediatric); N40.1 Benign prostatic hyperplasia with lower urinary tract symptoms; G47.00 Insomnia, unspecified; J45.909 Unspecified asthma, uncomplicated; E11.9 Type 2 diabetes mellitus without complications
CPT/HCPCS: 36415; 71045; 73720; 80048; 80053; 80202; 81001; 82565; 82948; 83036; 83605; 83690; 83735; 84100; 84439; 84443; 85025; 85027; 85055; 87040; 87070; 87147; 87186; 87205; 93971; 96361; 96365; 96366; 96367; 97161; 97165; 99285; A9270; A9577; G0378; J0743; J1650; J1815; J2543; J3370; J7030

== ENCOUNTER → 2020-08-10 11:28 | Outpatient (CLI) | payer BC, MEDICARE, OTHER, SELFPAY ==
--- NOTE | ~2020-08-10 | XR_ITS ---
XR chest 2V DATE: 08/10/2020 12:44 INDICATION: Shortness of breath TECHNIQUE: 2 views COMPARISON: 08/02/2020 portable AP chest 05/09/2020, 08/26/2019, 03/13/2018, 02/26/2017, 03/05/2011 PA and lateral chest FINDINGS: There is prominence of the minor and greater fissures suggesting subpleural edema. Mild pul monary vascular congestion and redistribution and suggestion of small pleural effusions. Findings sug gest mild congestive changes. Heart size is within normal limits. No pulmonary consolidation is evident. No pneumothorax. IMPRESSION: Suggestion of mild congestive changes Reviewed, dictated and finalized at location A.
== END ==
PROVIDERS: PCP Family Medicine; Visit Provider Nurse Practitioner Family
DX: R06.02 Shortness of breath (principal); R06.01 Orthopnea
CPT/HCPCS: 71046

== ENCOUNTER 2021-04-17 08:57 | Outpatient (CLI) | payer MEDICARE, OTHER, SELFPAY ==
[2021-04-17 17:07] LABS: Creatinine Urine 39.2 mg/dL
[2021-04-17 17:09] LABS: Anion Gap 10 mmol/L (8-16); Blood Urea Nitrogen 22 mg/dL (9-20); Calcium 9.8 mg/dL (8.4-10.2); Carbon Dioxide 26 mmol/L (22-30); Chloride 99 mmol/L (98-107); Estimated Glomerular Filt Rate > 60; Glucose 217 mg/dL (65-110); HDL Direct 29 mg/dL; Potassium 4.1 mmol/L (3.4-5.0); Sodium 135 mmol/L (137-145)
[2021-04-17 17:13] LABS: MALB Creatinine Ratio 245.2 mg/g (0-30); Microalbumin Urine Random 96.1 mg/L (0-16.7)
[2021-04-17 17:22] LABS: LDL Cholesterol Direct 65 mg/dL
== END 2021-04-17 08:58 | disposition home or self-care (01) ==
LOC: ANHWCLAB 09:01
PROVIDERS: PCP Family Medicine; Referring Provider Internal Medicine Endocrinology, Diabetes & Metabolism; Visit Provider Internal Medicine Endocrinology, Diabetes & Metabolism
DX: E11.65 Type 2 diabetes mellitus with hyperglycemia (principal); E78.5 Hyperlipidemia, unspecified; Z79.4 Long term (current) use of insulin; Z71.3 Dietary counseling and surveillance
CPT/HCPCS: 36415; 80048; 82043; 82607; 83718; 83721; 84443

== ENCOUNTER 2022-07-05 00:51 | Day surgery (SDC) | payer MEDICARE, OTHER, SELFPAY ==
[2022-06-29 12:23] VITALS: BMI 43.8
--- NOTE | 2022-07-04 14:48 | PM.HPGS ---
History of Present Illness History of Present Illness Consent: Risks, benefits, and alternatives have been discussed and questions answered. Patient agrees to proceed with procedure. Chief complaint: neoplasm screening Narrative: Blas Cole is a 66 year old male Referred for colon cancer screening. Review of Systems Review of Systems: All systems reviewed & are unremarkable except as noted in HPI and below PMFSH Past Medical History Medical History Asthma Atrial fibrillation The patient stated that he was cardioverted 8 times and also had an ablation. BMI 39.0-39.9,adult BMI 39.0-39.9,adult BMI 40.0-44.9, adult BMI 45.0-49.9, adult BPH associated with nocturia Diabetes type 2, uncontrolled Dizziness Essential (primary) hypertension Hypertension Insomnia Kidney stone X4 passed on his own Mixed hyperlipidemia Morbid obesity MARIYA (obstructive sleep apnea) Other emphysema Pleural effusion Surgical screw in right hand Testicular hypofunction Toe pain, right Type 2 diabetes mellitus without complications Vasculogenic erectile dysfunction Vitamin D deficiency Surgical History Surgical History H/O cardiac catheterization H/O hernia repair H/O right knee surgery History of loop recorder History of tonsillectomy and adenoidectomy Hx of cholecystectomy S/P ablation of atrial flutter Status post right foot surgery Family History Family History Mother Hypertension Cancer Grandparent Carcinoma of colon Diabetes mellitus Father Family history of diabetes mellitus in first degree relative Acute myocardial infarction Heart disease Sibling Heart disease Acute myocardial infarction Sibling , cancer Cancer Social History Social History Social History: The patient lives with his who is his durable power business attorney for healthcare. The patient desires to be a full code. The patient has 2 children. He is a lifelong nonsmoker. He denies any alcohol marijuana or illicit drugs. 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 Years smoked: 8 Smoking status: Former smoker Tobacco type: cigarettes Second hand tobacco smoke exposure: Yes Smoking end date: 09/07/78 Alcohol intake: former Substance use: never Substance use type: does not use Lack of Transportation: No Lack of Food: Never True Current Housing: I Have Housing Concerned About Future Housing: No Difficulty Paying Gas/Electric Bills: No Difficulty Paying for Meds: No Currently Unemployed: No Education: High School Diploma/GED Difficulty w/ Childcare or Family Care: No Living arrangements: with family Occupation/Education: retired 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 [employer] Gender identity (if verbalized by the patient): Male Spiritual care concerns: No Meds Home Medications and Allergies Home Medications Medication Instructions Recorded Confirmed Type tamsulosin 0.4 mg capsule 0.4 mg PO QPM 08/02/20 06/29/22 History clonidine HCl 0.3 mg tablet 0.3 mg PO BID 09/19/20 06/29/22 History levothyroxine 112 mcg capsule 112 mcg PO DAILY 02/20/21 06/29/22 History hydralazine 100 mg tablet 100 mg PO BID 03/21/21 06/29/22 History blood sugar diagnostic (FreeStyle See Rx Instructions .Route 03/24/21 06/29/22 Rx Lite Strips) .COMPLEX #100 strips blood-glucose meter (FreeStyle #1 ea 03/24/21 06/13/22 Rx [place] Lite kit) apixaban 5 mg tablet (Eliquis) 5 mg PO BID #60 tabs 11/08/21 06/29/22 Rx metoprolol tartrate 25 mg tablet 25 mg PO BID 11/26/21 06/29/22 History pen needle, diabetic 31 gauge x #200 ea 12/25/21 06/13/22 Rx 5/16 (BD Ultra-Fine Short Pen Needle) atorvastatin 20 mg tablet 20 mg PO SCARLET
[2022-07-05 06:56] VITALS: BP 166/73; PULSE 90; RESP 21; TEMP 36.3; O2SAT 96
[2022-07-05] MEDS: LACTATED RINGERS 1,000 ML 150 ML IV CONT (07:15)
--- NOTE | 2022-07-05 07:15 | WPDANESEPPF ---
Anes - Initial Pre Proc Eval Procedure: Operation Date: 07/05/22 08:15 Proposed Procedures p Colonoscopy - Tye Orellana MD Date/Time: 07/05/22 07:15 Surgeon: Tye Orellana MD Pre Op Diagnosis: neoplasm screening Patient Data Age: 66 Gender: M Height: 1.91 m Weight: 158.3 kg Last Vital Signs Temp 36.3 C L 07/05/22 06:56 Pulse 90 07/05/22 06:56 Resp 21 H 07/05/22 06:56 BP 166/73 H 07/05/22 06:56 Pulse Ox 96 07/05/22 06:56 O2 Del Method Room Air 07/05/22 06:56 Allergies Allergy/AdvReac Type Severity Reaction Status Date / Time cyclobenzaprine Allergy Severe Swelling Verified 07/05/22 06:53 of Lip/Tongue/Throat Home Medications Medication Instructions Recorded Confirmed Type tamsulosin 0.4 mg capsule 0.4 mg PO QPM 08/02/20 06/29/22 History clonidine HCl 0.3 mg tablet 0.3 mg PO BID 09/19/20 06/29/22 History levothyroxine 112 mcg capsule 112 mcg PO DAILY 02/20/21 06/29/22 History hydralazine 100 mg tablet 100 mg PO BID 03/21/21 06/29/22 History blood sugar diagnostic (FreeStyle See Rx Instructions .Route 03/24/21 06/29/22 Rx Lite Strips) .COMPLEX #100 strips blood-glucose meter (FreeStyle #1 ea 03/24/21 06/13/22 Rx [place] Lite kit) apixaban 5 mg tablet (Eliquis) 5 mg PO BID #60 tabs 11/08/21 06/29/22 Rx metoprolol tartrate 25 mg tablet 25 mg PO BID 11/26/21 06/29/22 History pen needle, diabetic 31 gauge x #200 ea 12/25/21 06/13/22 Rx 5/16 (BD Ultra-Fine Short Pen Needle) atorvastatin 20 mg tablet 20 mg PO DAILY 90 days #90 tabs 05/24/22 06/29/22 Rx blood-glucose meter,continuous #1 ea 05/24/22 06/13/22 Rx (Dexcom G6 Extras Casting Director) blood-glucose sensor (Dexcom G6 #9 ea 05/24/22 06/13/22 Rx Sensor device) blood-glucose transmitter (Dexcom #1 ea 05/24/22 06/13/22 Rx G6 Transmitter device) insulin degludec 100 unit/mL (3 55 unit (0.55 mL) subcut DAILY 90 05/24/22 06/29/22 Rx mL) subcutaneous pen (Tresi #49.5 mL FlexTouch U-100 insulin) losartan 25 mg tablet 25 mg PO DAILY 90 days #90 tabs 05/24/22 06/29/22 Rx metformin 500 mg tablet,extended 1,000 mg PO BID 90 days #360 tabs 05/24/22 06/29/22 Rx release 24 hr zolpidem 10 mg tablet 10 mg PO HS #30 tabs 06/22/22 06/29/22 Rx budesonide 160 mcg-glycopyr 9 2 inh inhalation BID 06/29/22 06/29/22 History mcg-formot 4.8 mcg/actuation HFA inhaler (Breztri T3D Therapeuticsphere) bumetanide 2 mg tablet 2 mg PO DAILY 06/29/22 06/29/22 History dofetilide 500 mcg capsule 500 mcg PO BID 06/29/22 06/29/22 History furosemide 40 mg tablet 40 mg PO DAILY 06/29/22 06/29/22 History insulin aspart U-100 100 unit/mL See Rx Instructions .Route .COMPLEX 06/29/22 06/29/22 History (3 mL) subcutaneous pen (Novolog FlexPen U-100 Insulin aspart) magnesium oxide 400 mg PO BID 06/29/22 06/29/22 History semaglutide 0.25 mg or 0.5 mg (2 0.25 mg subcut WEEKLY 06/29/22 06/29/22 History mg/3 mL) subcutaneous pen injector (Ozempic) trazodone 50 mg tablet 50 mg PO HS 06/29/22 06/29/22 History triamcinolone acetonide 0.1 % 1 applic topical Q12HR PRN Rash 06/29/22 06/29/22 History topical cream Patient hx anesthesia problems: none Family hx anesthesia problems: none Results Review: All pre-operative results and documents have been reviewed as part of the pre-operative evaluation. [facility] Past Medical History Medical History Asthma Atrial fibrillation The patient stated that he was cardioverted 8 times and also had an ablation. BMI 39.0-39.9,adult BMI 39.0-39.9,adult BMI 40.0-44.9, adult BMI 45.0-49.9, adult BPH associated with nocturia Diabetes type 2, uncontrolled Dizziness Essential (primary) hypertension Hypertension Insomnia Kidney stone X4 passed on his own Mixed hyperlipidemia Morbid obesity MARIYA (obstructive sleep apnea) Other emphysema Pleural effusion Surgical screw in right hand Testicular hypofunction Toe pain, right Type 2 diabe
[2022-07-05 07:16] LABS: Glucose Point of Care 186 mg/dl (65-105)
[2022-07-05 08:14] VITALS: BP 105/58; PULSE 91; RESP 21; O2SAT 98
[2022-07-05 08:24] VITALS: BP 113/59; PULSE 82; RESP 16; O2SAT 98
[2022-07-05 08:33] LABS: Glucose Point of Care 173 mg/dl (65-105)
[2022-07-05 08:34] VITALS: BP 107/62; PULSE 81; RESP 20; O2SAT 97
== END 2022-07-05 08:40 | disposition home or self-care (01) ==
PROVIDERS: PCP Family Medicine; Visit Provider Internal Medicine Gastroenterology
PROC: 0DJD8ZZ Inspection of Lower Intestinal Tract, Via Natural or Artificial Opening Endoscopic (ICD-10-PCS; CPT 45378; principal; 2022-07-05 08:15)
DX: Z12.11 Encounter for screening for malignant neoplasm of colon (principal); K57.30 Diverticulosis of large intestine without perforation or abscess without bleeding; D12.0 Benign neoplasm of cecum; I10 Essential (primary) hypertension; E11.9 Type 2 diabetes mellitus without complications; E78.2 Mixed hyperlipidemia; G47.33 Obstructive sleep apnea (adult) (pediatric); J43.9 Emphysema, unspecified; E55.9 Vitamin D deficiency, unspecified; I48.91 Unspecified atrial fibrillation; N40.1 Benign prostatic hyperplasia with lower urinary tract symptoms; R35.1 Nocturia; Z79.01 Long term (current) use of anticoagulants; Z79.4 Long term (current) use of insulin; Z79.84 Long term (current) use of oral hypoglycemic drugs; Z79.51 Long term (current) use of inhaled steroids; Z79.899 Other long term (current) drug therapy; Z87.891 Personal history of nicotine dependence; E66.01 Morbid (severe) obesity due to excess calories; Z68.41 Body mass index [BMI] 40.0-44.9, adult
CPT/HCPCS: 45385; 82948; 88305; J2704; J7120

== ENCOUNTER 2022-07-06 12:23 | Outpatient (CLI) | payer MEDICARE, OTHER, SELFPAY ==
--- NOTE | ~2022-07-06 | CT_ITS ---
EXAMINATION: CT diagnostic chest wo con DATE: 07/06/2022 13:58 INDICATION: Shortness of breath, pleural disease TECHNIQUE: Computed tomography (CT) of the chest was performed without intravenous contrast. The dose -length product (DLP) was 1063.73 mGy-cm. Automated exposure control and iterative reconstruction hansel hnique were employed. COMPARISON: 02/28/2017 FINDINGS: The previously described left pleural effusion has resolved. There is a moderate-sized locu lated right pleural effusion. Associated subpleural airspace opacities are present in the right lung. There appears to be an area of rounded atelectasis in the right lower lobe. There is mild volume los s in the right hemithorax. A dual-lead cardiac pacemaker of the left chest wall ends with leads in ex pected locations. There is no pneumothorax. No pathologically enlarged thoracic lymph nodes are ident ified. Calcified atherosclerosis is noted. There are bridging osteophytes at multiple levels in the s pine, consistent with diffuse idiopathic skeletal hyperostosis (DISH). IMPRESSION: 1. Moderate-sized loculated right pleural effusion with associated passive atelectasis in the adjacen t right lower lobe. Reviewed, dictated and finalized at location B. IMPRESSION: 1. Moderate-sized loculated right pleural effusion with associated passive atel ectasis in the adjacent right lower lobe.
[2022-07-06 13:30] VITALS: PULSE 96; O2SAT 96
[2022-07-06 13:35] VITALS: PULSE 113; O2SAT 93
[2022-07-06 13:45] VITALS: PULSE 100; O2SAT 96
--- NOTE | 2022-07-06 14:00 | HOMEO2EVAL ---
Evaluation was performed at [facility] Home Oxygen Evaluation RC: Home Oxygen (O2) Evaluation Start: 07/06/22 13:59 Freq: Status: Active Protocol: RPE Activity Type Activity Date Activity User E-sign Co-sign Detail Recorded Client Recorded Date Recorded By Document 07/06/22 13:30 CHRISSY [id number] 07/06/22 14:00 CHRISSY Document 07/06/22 13:35 CHRISSY [email or web address] 07/06/22 14:00 CHRISSY Document 07/06/22 13:45 CHRISSY [email or web address] 07/06/22 14:00 CHRISSY 07/06/22 07/06/22 07/06/22 13:30 13:35 13:45 Home O2 Evaluation [Oxygen] -Test Phase Resting Exercise Resting -Oxygen Delivery Room Air Room Air Room Air [Pulse Oximetry] -Pulse Oximetry (90-100 %) 96 93 96 [Pulse Rate] -Pulse Rate (60-100 beats/min) 96 113 H 100 [Exercise] -Ambulation Distance (feet) 1,000 -Ambulation Distance (meters) 304.78 [Charges] -Treatment Charges O2 Evaluation - Outpatient
--- NOTE | 2022-07-06 17:08 | WPDPFTINT ---
PFT Procedure Performed PFT Procedure Performed Spirometry with Pre/Post Bronchodilator Plethysmography (Lung Vol) Diffusing Cap (DLCO) Flow Vol Loop PFT Interpretation This is a pulmonary function test with pre and post-bronchodilator spirometry, plethysmography and diffusing capacity. The test was performed and results interpreted in accordance with the 2019 and 2005 ATS/ERS Task Force guidelines respectively using the Global Lung Function Initiative-2012 reference equations. Patient demonstrated good effort and cooperation. Reproducibility criteria were met. The quality of the pre bronchodilator spirometry maneuver was Grade A and post bronchodilator spirometry maneuver was Grade A. Findings: Spirometry: The contour the inspiratory and expiratory flow tracing are normal. The pre bronchodilator FVC is 2.60 L, 62% predicted. The pre bronchodilator FEV1 is 1.79 L, 56% predicted. The pre bronchodilator FEV1: FVC ratio 69%. The post bronchodilator FVC is 2.31 L, representing an 11% decrease. The post bronchodilator FEV1 is 1.81 L, representing 1% increase. The post bronchodilator FEV1: FVC ratio 78%. Plethysmography: The total lung capacity is 4.25 L, 62% predicted. The functional residual capacity is 2.55 L, 65% predicted. The residual volume is 1.65 L, 68% predicted. Diffusing capacity: The diffusing capacity unadjusted for hemoglobin and carboxyhemoglobin is 19.3, 68% predicted. The diffusing capacity adjusted for alveolar volume is 5.58, 147% predicted. In comparison to previous PFT study on 02/11/2017 the post bronchodilator FVC has decreased from 3.81 L to 2.31 L. The post bronchodilator FEV1 has decreased from 2.77 L to 1.81 L. The total lung capacity has decreased from 6.78 L to 4.25 L. The functional residual capacity has decreased from 4.17 L to 2.55 L. The residual volume has decreased from 3.08 L to 1.65 L. The diffusing capacity unadjusted for hemoglobin and carboxyhemoglobin has decreased from 25.3 to 19.3. The diffusing capacity adjusted for alveolar volume is unchanged from 5.31 to 5.58 Impression: There is a moderately severe restrictive ventilatory abnormality. The spirometry is normal without evidence of an obstructive abnormality. There is no significant improvement after inhaling a single dose of albuterol. The diffusing capacity unadjusted for hemoglobin and carboxyhemoglobin is mildly decreased and is increased when adjusted for alveolar volume. in comparison to 02/11/2017 there has been a greater than anticipated time dependent decrease in FVC, FEV1, total lung capacity, functional residual capacity, residual volume, diffusing capacity unadjusted for hemoglobin and carboxyhemoglobin and no significant change in the diffusing capacity adjusted for alveolar volume. Clinical correlation is recommended.
== END 2022-07-06 12:24 | disposition home or self-care (01) ==
LOC: ANHLAB 12:28 → ANHPFT 12:28
PROVIDERS: PCP Family Medicine; Visit Provider Internal Medicine Pulmonary Disease
DX: J86.9 Pyothorax without fistula (principal); J90 Pleural effusion, not elsewhere classified; R06.02 Shortness of breath; R06.00 Dyspnea, unspecified
CPT/HCPCS: 71250; 94060; 94618; 94726; 94729

== ENCOUNTER → 2022-11-02 11:40 | Outpatient (CLI) | payer MEDICARE, OTHER, SELFPAY ==
--- NOTE | ~2022-11-02 | XR_ITS ---
EXAMINATION:XR_[id number]_CR DATE: 11/02/2022 11:59 INDICATION: Neck pain TECHNIQUE: AP, lateral, lateral swimmers and odontoid views of the cervical spine are provided. COMPARISON: None FINDINGS: Alignment is normal. The odontoid process is intact. No fracture is identified. The vertebr al body heights are maintained. There is mild loss of intervertebral disc space height at C3-4, C5-6, and C6-7. There is multilevel mild to moderate facet and uncovertebral joint osteoarthritis. Prevert ebral soft tissues are normal. Degenerative osteophytes project from the anterior endplates of multip le vertebral bodies. IMPRESSION: 1. Mild cervical spondylosis without acute findings. Reviewed, dictated and finalized at location A.
== END ==
PROVIDERS: PCP Family Medicine; Visit Provider Physician Assistant Medical
DX: M47.892 Other spondylosis, cervical region (principal)
CPT/HCPCS: 72040

== ENCOUNTER 2023-02-19 08:30 | Outpatient (RCR) | payer MEDICARE, OTHER, SELFPAY ==
[2022-12-27 13:11] VITALS: BMI 43.0
[2022-12-27 13:13] VITALS: BMI 43.0
[2023-02-19 08:54] VITALS: BMI 43.0
== END 2023-03-18 12:21 | disposition home or self-care (01) ==
LOC: ANHDMC 08:30
PROVIDERS: PCP Family Medicine; Visit Provider Internal Medicine Endocrinology, Diabetes & Metabolism
DX: E11.65 Type 2 diabetes mellitus with hyperglycemia (principal); E78.5 Hyperlipidemia, unspecified; Z79.4 Long term (current) use of insulin; Z71.3 Dietary counseling and surveillance
CPT/HCPCS: 97802; 97803

== ENCOUNTER 2023-05-22 09:22 | Outpatient (CLI) | payer MEDICARE, OTHER, SELFPAY ==
--- NOTE | ~2023-05-22 | XR_ITS ---
Right Humerus Technique: AP and lateral views were obtained. Clinical History: Bone disorder Findings: No fracture or dislocation is seen. Osseous alignment is anatomic. There is mild degenerati ve change of the glenohumeral and acromioclavicular joints.. Soft tissues are unremarkable. Impression: Mild degenerative change of the glenohumeral and acromial clavicular joints. Reviewed, dictated and finalized at location M. Impression: Mild degenerative change of the glenohumeral and acromial clavicular joints.
--- NOTE | ~2023-05-22 | XR_ITS ---
Right Shoulder Technique: AP and scapular Y views were obtained. Clinical History: Pain Findings: No fracture or dislocation is seen. Osseous alignment is anatomic. The glenohumeral and acr omioclavicular joints demonstrate mild degenerative change. Soft tissues are unremarkable. Impression: Mild degenerative change, as above. Reviewed, dictated and finalized at location . Impression: Mild degenerative change, as above.
== END 2023-05-22 09:23 ==
LOC: MICIMG 09:25
PROVIDERS: PCP Nurse Practitioner Adult Health; Visit Provider Nurse Practitioner Adult Health
DX: M89.8X2 Other specified disorders of bone, upper arm (principal); M19.011 Primary osteoarthritis, right shoulder
CPT/HCPCS: 73030; 73060

== ENCOUNTER 2023-09-30 08:55 | Outpatient (CLI) | payer MEDICARE, OTHER, SELFPAY ==
--- NOTE | ~2023-09-30 | XR_ITS ---
EXAMINATION: XR ribs BI 3V w CXR 2V DATE: 09/30/2023 09:15 INDICATION: Right mid lateral rib pain post fall 3 days prior TECHNIQUE: AP and lateral views of the chest and 3 views of the left ribs and 3 views of the right ri bs were obtained. COMPARISON: Chest CT dated 07/06/2022 FINDINGS: No rib fractures identified. Opacities in the right mid and lower lung zone which appear to correspon d to a small chronic loculated right pleural effusion with associated round atelectasis on the prior CT. Blunting at the left costophrenic angle suggesting a tiny left pleural effusion. End of the left lung is clear. No pneumothorax. Cardiac silhouette is normal in size but shifted slightly towards the right as seen on the prior CT consistent with volume loss in the right lower lobe. Dual lead pacemak er seen with leads projecting over the expected locations of the right atrium and right ventricle. IMPRESSION: 1. No rib fracture. 2. Opacities in the right mid and lower lung with associated volume loss consistent with likely chron ic loculated right pleural effusion and associated round atelectasis as seen on prior CT. Underlying pneumonia or malignancy is not excludable. Correlate with clinical history. Reviewed, dictated and finalized at location A. IMPRESSION: 1. No rib fracture. 2. Opacities in the right mid and lower lung with associated volume loss consis tent with likely chronic loculated right pleural effusion and associated round atelectasis as seen on prior CT. Underlying pneumonia or malignancy is not excl udable. Correlate with clinical history.
== END 2023-09-30 08:56 ==
PROVIDERS: PCP Family Medicine; Visit Provider Physician Assistant Medical
DX: R07.81 Pleurodynia (principal); R91.8 Other nonspecific abnormal finding of lung field
CPT/HCPCS: 71046; 71110

== ENCOUNTER 2023-10-07 14:58 | Outpatient (CLI) | payer MEDICARE, OTHER, SELFPAY ==
--- NOTE | ~2023-10-07 | CT_ITS ---
CT Scan of the Chest without Contrast: Clinical Indication: Abnormal finding of lung field Technique: Contiguous sections were acquired throughout the chest without intravenous contrast. Dose reduction technique was used on this scan by utilizing automated exposure control and iterative recon struction technique. The dose-length product (DLP) was 1050.44 mGy-cm. COMPARISON: 07/06/2022 Findings: There is no evidence of any significant mediastinal, hilar or axillary lymphadenopathy. The mediastin al soft tissues appear normal. No pericardial effusion. Moderate, partially loculated right pleural effusion with thickening of pleural lining is present, si milar to prior exam. Right basilar atelectatic changes present. No left pleural effusion. Left lung clear. Images through the upper abdomen reveal no abnormalities. Impression: Stable moderate right pleural effusion, likely partially loculated, with thickening of the pleural li keagan. Correlate for empyema or other complex effusion. Associated passive right basilar atelectatic change. Reviewed, dictated and finalized at location . Impression: Stable moderate right pleural effusion, likely partially loculated, with thicke keagan of the pleural lining. Correlate for empyema or other complex effusion. Associated passive right basilar atelectatic change.
== END 2023-10-07 14:59 | disposition home or self-care (01) ==
LOC: ANHIMG 14:59
PROVIDERS: PCP Family Medicine; Visit Provider Physician Assistant Medical
DX: J98.4 Other disorders of lung (principal); R91.8 Other nonspecific abnormal finding of lung field; J90 Pleural effusion, not elsewhere classified
CPT/HCPCS: 71250

== ENCOUNTER 2024-05-29 12:31 | Outpatient (CLI) | payer MEDICARE, OTHER, SELFPAY ==
--- NOTE | ~2024-05-29 | XR_ITS ---
XR chest 2V 05/29/2024 12:45 Indication: Pleural effusion Procedure: 2 view chest Comparison: Comparison to multiple prior studies sequentially, with oldest reviewed study dated 03/2020. Findings: There is a loculated right pleural effusion with underlying airspace disease which may repr esent edema, pneumonia and/or atelectasis. Stable cardiomediastinal silhouette. Pacemaker leads are s table. No pneumothorax. Impression: 1: Stable moderate loculated right pleural effusion. 2: Bilateral airspace disease, right greater than left. Differential diagnosis includes edema, pneumo stephane and/or atelectasis. Reviewed, dictated and finalized at location B. Impression: 1: Stable moderate loculated right pleural effusion. 2: Bilateral airspace disease, right greater than left. Differential diagnosis includes edema, pneumonia and/or atelectasis.
== END 2024-05-29 12:32 | disposition home or self-care (01) ==
LOC: MICIMG 12:35
PROVIDERS: PCP Family Medicine; Visit Provider Nurse Practitioner Family
DX: J90 Pleural effusion, not elsewhere classified (principal); R91.8 Other nonspecific abnormal finding of lung field
CPT/HCPCS: 71046

== ENCOUNTER 2024-06-02 08:20 | Outpatient (CLI) | payer MEDICARE, OTHER, SELFPAY ==
--- NOTE | ~2024-06-02 | CT_ITS ---
EXAMINATION: CT abdomen pelvis wo con DATE: 06/02/2024 09:57 INDICATION: Unspecified abdominal pain. TECHNIQUE: Computed tomography (CT) of the abdomen and pelvis was performed without intravenous contr ast. Automated exposure control and iterative reconstruction technique were employed. The dose-length product was 1209.95 mGy-cm. COMPARISON: CT abdomen and pelvis 12/21/2013, chest CT 10/07/2023 FINDINGS: The visualized portions of lung bases demonstrate mild atelectasis on the left. There is a moderate-sized loculated right pleural effusion with pleural thickening. There are airspace opacities with volume loss in right lower lobe, consistent with atelectasis. The heart size is normal. There a re pacer wires in right atrium and right ventricle. The liver, spleen, pancreas, and adrenal glands a re normal. There are changes of cholecystectomy. Right kidney is normal. There is a 2 mm stone in lef t kidney. The prostate is mildly enlarged. There is diverticulosis of the colon without evidence of d iverticulitis. The appendix is normal. There is a small sliding hiatal hernia. There are no pathologi vandana enlarged lymph nodes. There is no free intraperitoneal fluid. IMPRESSION: 1. Moderate-sized loculated right pleural effusion, stable from 10/07/2023. 2. Small sliding hiatal hernia. Reviewed, dictated and finalized at location A.
== END 2024-06-02 08:21 | disposition home or self-care (01) ==
PROVIDERS: PCP Nurse Practitioner Family; Visit Provider Nurse Practitioner Family
DX: R10.9 Unspecified abdominal pain (principal); Z87.442 Personal history of urinary calculi; J90 Pleural effusion, not elsewhere classified; K44.9 Diaphragmatic hernia without obstruction or gangrene
CPT/HCPCS: 74176